=== PATIENT | female | born 1965 | race Caucasian/White ===

== ENCOUNTER 2017-05-25 07:36 | Observation (INO) | payer OTHER ==
[2017-05-25] VITALS (8 sets, daily range): BP systolic 153–176; BP diastolic 92–106; PULSE 86–105; RESP 18–20; TEMP 97.9–98.8; O2SAT 96–99
[~2017-05-25] VITALS: Ht 165.1 cm; Wt 79.9 kg
[~2017-05-25 07:36] MED LIST: HYDR12.57 PO; LIDOCAINE 1%/EPINEPHrine 1:100,000 SOLN 50 ML VIAL ONE; NUVAMIS VAGINAL; OXYMETAZOLINE HCL 0.05% 15 ML NASAL SPRAY ONE; VALS1TAB63 PO
[2017-05-25] MEDS ORDERED: APREPITANT 40 MG CAP ONE (08:18)
[2017-05-25] MEDS ORDERED: FAMOTIDINE 20 MG/2 ML VIAL ONE (08:18)
[2017-05-25] MEDS ORDERED: LACTATED RINGER'S 1000 ML INJ 1,000 ML ONE (08:36)
[2017-05-25] MEDS ORDERED: AMPICILLIN-SULBACTAM INJ 3 GM VIAL ONE (08:36)
[2017-05-25] MEDS ORDERED: SODIUM CHLORIDE 0.9% INJ 100 ML ONE (08:37)
[2017-05-25] MEDS: AMPICILLIN/SULBAC 3 GM/NS 100 ML IV SCH ×6 (08:58→19:32)
[2017-05-25] MEDS ORDERED: ACETAMINOPHEN 1000 MG/100 ML 100 ML IV ONE (09:09)
[2017-05-25] MEDS ORDERED: METOPROLOL TARTRATE 25 MG TAB PO PRN (09:45)
[2017-05-25] MEDS ORDERED: LACTATED RINGER'S 1000 ML IV PRN (09:45)
[2017-05-25] MEDS ORDERED: CHLORHEXIDINE GLUCONATE 2 % 1 PACK (2 CLOTHS) TOPICAL PRN (09:45)
[2017-05-25] MEDS ORDERED: SODIUM CHLORID 0.9% 500 ML IV PRN (09:45)
[2017-05-25] MEDS ORDERED: INSULIN HUMAN REGULAR 1,000 UNITS/10 ML VIAL SQ PRN (09:45)
[2017-05-25] MEDS ORDERED: POVIDONE IODINE 5% (ANTISEPSIS KIT) 4 APPLICATIONS EACH NARE PRN (09:45)
[2017-05-25] MEDS ORDERED: *MEPERIDINE 25 MG INJ VIAL PERIprocedural Use ONLY ONE (10:11)
[2017-05-25] MEDS ORDERED: *HYDROmorphone PF 1 MG VIAL PERIprocedural Use ONLY ONE (10:36)
[2017-05-25] MEDS ORDERED: *Lactated Ringer's INJ 1,000 ML ONE (10:40)
[2017-05-25] MEDS: ACETAMINOPHEN/HYDROcodone 325 MG/5 MG TAB PO PRN ×3 (13:22→21:35)
[2017-05-25] MEDS: ONDANSETRON HCL 4 MG/2 ML VIAL IV PUSH PRN ×2 (14:34→19:32)
[2017-05-25] MEDS: HYDROCHLOROTHIAZIDE 12.5 MG CAP PO SCH (19:32)
[2017-05-25] MEDS ORDERED: VALSARTAN 40 MG TAB PO SCH (22:30)
[2017-05-25] MEDS: LACTATED RINGER'S 1000 ML INJ 1,000 ML IV SCH (22:49)
[2017-05-26] VITALS: BP 164/105; PULSE 99; RESP 18; TEMP 98.1; O2SAT 99
[2017-05-26] MEDS: LACTATED RINGER'S 1000 ML INJ 1,000 ML IV SCH (01:30)
[2017-05-26] MEDS: ACETAMINOPHEN/HYDROcodone 325 MG/5 MG TAB PO PRN ×2 (01:39→07:53)
[2017-05-26] MEDS: ONDANSETRON HCL 4 MG/2 ML VIAL IV PUSH PRN ×2 (01:46→07:52)
[2017-05-26] MEDS: AMPICILLIN/SULBAC 3 GM/NS 100 ML IV SCH ×2 (04:29)
[2017-05-26 04:44] VITALS: BP 161/97
[2017-05-26] MEDS: HYDROCHLOROTHIAZIDE 12.5 MG CAP PO SCH (07:52)
[2017-05-26] MEDS ORDERED: VALSARTAN 40 MG TAB PO SCH (09:00)
--- NOTE | 2017-05-27 06:47 | MP ---
cc: ELLIE BLAIR M.D. DATE OF SURGERY 05/25/[address] Ellie blair PREOPERATIVE DIAGNOSIS 1. Nasal airway obstruction 2. Nasal septal deviation 3. Hypertrophy of inferior turbinates POSTOPERATIVE DIAGNOSIS 1. Nasal airway obstruction 2. Nasal septal deviation 3. Hypertrophy of inferior turbinates OPERATION PERFORMED 1. Open repair nasal septal fracture. 2. Bilateral submucosal resection of inferior turbinates INDICATIONS Documented in the history and physical. DESCRIPTION OF OPERATION The patient was taken to OR #2 and placed in the supine position. Following induction of general anesthesia and intubation, the nose was packed bilaterally with cotton pledgets saturated in 0.05% Oxymetazoline. The nasal septum and the inferior turbinates were injected with a total of 8 mL of 1% Xylocaine with epinephrine 1:100,000 and she was then prepped and draped for surgery. The packing was removed and a hemitransfixion incision was made in the left nasal vestibule and through this incision the mucosa of septum was elevated bilaterally as far as the rostrum of the sphenoid followed by removal of a 2 x 2.5 cm segment of very thick twisted and irregular quadrangular cartilage. This was done in a piecemeal fashion using Candice elevator and Leonel Montemayor forceps. This completed preserving 1.5 cm dorsal and caudal cartilaginous struts. When this was completed, the bony septum was removed with Castaneda Montemayor forceps and the Asa Dewitt septal forceps. The maxillary crest was removed with a 6-mm Shorty chisel. The incision was then closed with a running suture of 4-0 chromic and the mucosal layers of septum were approximated to each other with a quilting stitch of 4-0 plain gut. The inferior turbinates were then fractured out medially and stab incisions were opened along their inferior surfaces. Through these incisions, the submucosal soft tissue was reduced using a curette and preserving the conchal bone. The incisions were was then cauterized using the suction Bovie at [address] [place]. The remnants of the inferior turbinates were then we lateralized to the lateral nasal wall and the nose was packed with 5.5 cm rapid rhino packs. Each one was inflated to 5 mL of air. The procedure was then terminated. The patient was reversed from anesthesia and taken to recovery in good condition. There no complications. Blood loss was 80 mL. MD ALEN Bond/JENA /1:18 PM /6:27 AM
== END 2017-05-26 08:50 | disposition home or self-care (01) ==
LOC: PHSDC 07:36 → PH3B 09:25
PROVIDERS: ADMIT Otolaryngology; ATTEND Otolaryngology
DX: J34.89 Other specified disorders of nose and nasal sinuses (principal); J34.2 Deviated nasal septum; J34.3 Hypertrophy of nasal turbinates; G47.33 Obstructive sleep apnea (adult) (pediatric); Z87.891 Personal history of nicotine dependence
CPT/HCPCS: 00160; 21335; 30140; 94762; 96365; 96366; 96375; 96376; G0378; J0131; J0295; J1170; J2175; J2405; J7120; J8501